=== PATIENT | female | born 1975 | race Caucasian/White ===

== ENCOUNTER → 2017-08-11 | Day surgery (SDC) | payer OTHER ==
[2017-08-08 14:25] LABS: BASOPHILS % 0.5 % (0.0-1.0); EOSINOPHILS # (AUTO) 0.2 (0.0-0.4); HEMATOCRIT 35.7 % (34.2-44.1); HEMOGLOBIN 11.1 g/dL (12.0-16.0); LYMPHOCYTES # (AUTO) 2.5 (1.0-3.2); LYMPHOCYTES % 33.6 % (18.0-39.1); MEAN CORPUSCULAR HEMOGLOBIN 23.5 pg (28-32); MEAN CORPUSCULAR HGB CONC 31.1 g/dL (31-35); MEAN CORPUSCULAR VOLUME 75.6 fL (81-99); MONOCYTES # (AUTO) 0.3 (0.2-0.8); MONOCYTES % 3.8 % (4.4-11.3); NEUTROPHILS # (AUTO) 4.4 (2.1-6.9); NEUTROPHILS % 58.8 % (38.7-80.0); PLATELET COUNT 273 x10e3/uL (140-360); RED BLOOD COUNT 4.72 x10e6/uL (3.6-5.1)
[2017-08-08 14:44] LABS: ANION GAP 13.7 mmol/L (8-16); BLOOD UREA NITROGEN 8 mg/dL (7-26); BUN/CREATININE RATIO 10 (6-25); CALCIUM 9.3 mg/dL (8.4-10.2); CARBON DIOXIDE 23 mmol/L (22-29); CHLORIDE 105 mmol/L (98-107); CREATININE, SERUM 0.84 mg/dL (0.57-1.11); EST GLOMERULAR FILTRATION RATE > 60 ML/MIN (60-); GLUCOSE 108 mg/dL (74-118); POTASSIUM 3.7 mmol/L (3.5-5.1); SODIUM 138 mmol/L (136-145)
[~2017-08-11] MED LIST: ACETAMINOPHEN325 M1 PO; BUPIVACAINE 0.25%/EPI 30ML SDV INJ ONE; DEXAMETHASONE SOD PHOS INJ 4 MG/ML VIAL ONE; FAMOTIDINE 20 MG/2 ML VIAL IV ONE; FENTANYL CITRATE/PF 100MCG/2 ML INJ ONE; GLYCOPYRROLATE INJ 1MG/ 5 ML SYR ONE; KETOROLAC TROMETHAMINE 30 MG/ML VIAL ONE; LIDOCAINE HCL 2% LOCAL INJ 5 ML SDV VIAL INJ ONE; METOCLOPRAMIDE HCL 10 MG/2ML VIAL ONE; MIDAZOLAM HCL 2 MG/2 ML VIAL ONE; MOTRIN200 MG PO; NEOSTIGMINE 5 MG/5ML SYR ONE; ONDANSETRON HCL INJ 2 MG/ML VIAL ONE; PRILOSEC10 M1; PROPOFOL IV EMULSION 10 MG/ML 20 ML VIAL ONE; ROCURONIUM BROMIDE 10 MG/ML 5ML VIAL ONE; SCOPOLAMINE 1.5 MG PATCH ONE; SEVOFLURANE INHAL SOLN 250 ML PEN BTL ONE; TRAMADOL HCL100 MG
--- OUTSIDE RECORDS SUMMARY | 2017-08-11 07:47 | XMS REPORT | Summary of Care ---
Author Author [facility] Organization [facility] Address Unknown Phone Unavailable Encounter HQ Estephania_edwige(FIN) [id number] Date(s): 06/23/17 - 06/23/17 [place] [id number] [facility], [address] [place] [address]- [phone] Discharge Disposition: Home or Self Care Attending Physician: Kala Flores MD Vital Signs Most recent to 1 oldest [Reference Range]: Height 160.02 cm (06/23/17 9:49 AM) Temperature Oral 98.2 DegF [96.4-99.1 DegF] (06/23/17 9:49 AM) Blood Pressure 126/84 mmHg [90-140/60-90 mmHg] (06/23/17 9:49 AM) Peripheral Pulse 101 bpm Rate [60-100 bpm] *HI* (06/23/17 9:49 AM) Weight 90.483 kg (06/23/17 9:49 AM) Body Mass Index 35.34 m2 (06/23/17 9:49 AM) Problem List Condition Effective Dates Status Health Status Informant Acute upper 10/24/13 Active respiratory infection of multiple sites1 Anemia(Confirmed) Active Celiac Resolved disease(Confirmed) Obesity(Confirmed) Active Otitis Resolved media(Confirmed) Weight Active gain(Confirmed) 1Data migrated from [employer] on 08/12/14. Allergies, Adverse Reactions, Alerts Substance Reaction Severity Status sulfa drugs1 Active wheat dextrin Active 1Data migrated from [employer] on 10/09/14. Originally documented as SULFA. Medications No Known Medications Results No data available for this section Immunizations Given and Recorded Vaccine Date Status Refusal Reason diphtheria/pertussis, acel/tetanus adult1 08/13/15 Given 1Result Comment: [facility]#[id number] Procedures Procedure Date Related Diagnosis Body Site Status section Completed D&C - Dilatation and curettage Completed Esophagoduodenostomy Completed Miscellaneous operations1 Completed 1Ear surgery Social History Social History Type Response Alcohol Never Smoking Status Never smoker; Previous treatment: None; Exposure to Tobacco Smoke None; Cigarette Smoking Last 365 Days No; Reg Smoking Cessation Counseling No entered on: 06/23/17 Assessment and Plan No data available for this section
--- OUTSIDE RECORDS SUMMARY | 2017-08-11 07:47 | XMS REPORT | Summary of Care ---
Author Author [facility] Organization [facility] Address Unknown Phone Unavailable Encounter LEN Hardy(JANNETH) [id number] Date(s): 02/16/16 - 02/16/16 [facility] [address] [place] [address]- Discharge Diagnosis: Abdominal pain Discharge Diagnosis: Acute pyelonephritis Discharge Disposition: Home or Self Care Attending Physician: René Paulino MD Vital Signs 1 2 3 Most recent to oldest [Reference Range]: 160.02 cm (02/16/16 11:28 AM) Height 98.1 DegF (02/16/16 8:30 PM) 98.2 DegF (02/16/16 2:22 PM) 98.7 DegF (02/16/16 11:28 AM) Temperature Oral [96.4-99.1 DegF] 110/72 mmHg (02/16/16 8:30 PM) 108/67 mmHg (02/16/16 2:22 PM) 107/70 mmHg (02/16/16 11:28 AM) Blood Pressure [90-140/60-90 mmHg] 16 BRMIN (02/16/16 8:30 PM) 18 BRMIN (02/16/16 2:22 PM) 18 BRMIN (02/16/16 11:28 AM) Respiratory Rate [14-20 BRMIN] 86 bpm (02/16/16 8:30 PM) 87 bpm (02/16/16 2:22 PM) 91 bpm (02/16/16 11:28 AM) Peripheral Pulse Rate [60-100 bpm] 77.273 kg (02/16/16 11:28 AM) Weight 30.18 m2 (02/16/16 11:28 AM) Body Mass Index Problem List Condition Effective Dates Status Health Status Informant Acute upper 10/24/13 Active respiratory infection of multiple sites1 Anemia(Confirmed) Active Celiac Resolved disease(Confirmed) Obesity(Confirmed) Active Otitis Resolved media(Confirmed) Weight Active gain(Confirmed) 1Data migrated from [employer] on 08/12/14. Allergies, Adverse Reactions, Alerts Substance Reaction Severity Status sulfa drugs1 Active 1Data migrated from [employer] on 10/09/14. Originally documented as SULFA. Medications ciprofloxacin 500 mg oral tablet 500 mg=1 tab, PO, Q12H, X 10 day, # 20 tab, 0 Refill(s), Pharmacy: [place] [id number] Start Date: 02/16/16 Stop Date: 02/26/16 Status: Ordered Rocephin + sodium chloride 0.9% INJ 100 mL 1 gm, Route: IVPB, ONCE, Dosing Weight 77.273, kg, Priority: STAT, Start date: 02/16/16 18:45:00 RESEARCH DEVELOPMENT DIRECTOR, Stop date: 02/16/16 18:45:00 RESEARCH DEVELOPMENT DIRECTOR Notes: (Same As: Rocephin).Use with 100 mL NS and infuse over 30 min MEDICATION WASTE Product Size: 1000 mgProduct Wasted: ___ mg Start Date: 02/16/16 Stop Date: 02/16/16 Status: Completed tramadol 50 mg oral tablet 50 mg=1 tab, PO, Q6H, PRN Pain, X 10 day, # 24 tab, 0 Refill(s) Start Date: 02/16/16 Stop Date: 02/26/16 Status: Ordered Results ELECTROLYTES Most recent to 1 oldest [Reference Range]: Sodium Lvl [135-145 139 mEq/L mEq/L] (02/16/16 2:16 PM) Potassium Lvl 4.2 mEq/L [3.5-5.1 mEq/L] (02/16/16 2:16 PM) Chloride Lvl [95-109 105 mEq/L mEq/L] (02/16/16 2:16 PM) CO2 [24-32 mEq/L] 27 mEq/L (02/16/16 2:16 PM) AGAP [10.0-20.0 11.2 mEq/L mEq/L] (02/16/16 2:16 PM) CHEM PANEL Most recent to 1 oldest [Reference Range]: Creatinine Lvl 0.99 mg/dL [0.50-1.40 mg/dL] (02/16/16 2:16 PM) eGFR 73 mL/min/1.73m2 1 *NA* (02/16/16 2:16 PM) BUN [7-22 mg/dL] 7 mg/dL (02/16/16 2:16 PM) B/C Ratio [6-25] 7 (02/16/16 2:16 PM) Glucose Lvl [70-99 86 mg/dL mg/dL] (02/16/16 2:16 PM) Total Protein 8.6 g/dL [6.4-8.4 g/dL] *HI* (02/16/16 2:16 PM) Albumin Lvl [3.5-5.0 3.5 g/dL g/dL] (02/16/16 2:16 PM) Globulin [2.7-4.2 5.1 g/dL g/dL] *HI* (02/16/16 2:16 PM) A/G Ratio [0.7-1.6] 0.7 (02/16/16 2:16 PM) Calcium Lvl 8.9 mg/dL [8.5-10.5 mg/dL] (02/16/16 2:16 PM) ALT [0-65 unit/L] 24 unit/L (02/16/16 2:16 PM) AST [0-37 unit/L] 14 unit/L (02/16/16 2:16 PM) Alk Phos [39-136 48 unit/L unit/L] (02/16/16 2:16 PM) Bili Total [0.2-1.3 0.6 mg/dL mg/dL] (02/16/16 2:16 PM) Lipase Lvl [73-393 168 unit/L unit/L] (02/16/16 2:16 PM) 1Result Comment: The eGFR is calculated using the CKD-EPI formula. In most young , healthy individuals the eGFR will be >90 mL/min/1.73m2. The eGFR declines with age. An eGFR of 60-89 may be normal in some populations, particularly the elderly, for whom the CKD-EPI formula has not been extensively validated. Use of the eGFR is not recommended in the following populations: Individuals with unstable creatinine concentrations, including patients and those with serious co-morbid conditions. Patients with extremes in muscle mass or diet. The data above are obtained from the National Kidney Disease Education Program ( NKDEP) which additionally recommends that when the eGFR is used in patients with extremes of body mass index for purposes of drug dosing, the eGFR should be multiplied by the estimated BMI. URINE CHEM Most recent to 1 oldest [Reference Range]: U Preg [Negative] Negative (02/16/16 4:22 PM) URINE AND STOOL Most recent to 1 oldest [Reference Range]: UA Turbidity [Clear] Marked *ABN* (02/16/16 4:22 PM) UA Color [Yellow] Yellow *NA* (02/16/16 4:22 PM) UA pH [5.0-8.0] 5.0 (02/16/16 4:22 PM) UA Spec Grav 1.024 [<=1.030] (02/16/16 4:22 PM) UA Glucose [Negative Negative mg/dL mg/dL] *NA* (02/16/16 4:22 PM) UA Blood [Negative] Small *ABN* (02/16/16 4:22 PM) UA Ketones [Negative Negative mg/dL mg/dL] *NA* (02/16/16 4:22 PM) UA Protein [Negative 100 mg/dL mg/dL] *ABN* (02/16/16 4:22 PM) UA Urobilinogen <=1.0 mg/dL [0.1-1.0 mg/dL] *NA* (02/16/16 4:22 PM) UA Bili [Negative] Negative *NA* (02/16/16 4:22 PM) UA Leuk Est Large [Negative] *ABN* (02/16/16 4:22 PM) UA Nitrite Negative [Negative] (02/16/16 4:22 PM) UA WBC [0-5 /HPF] >182 /HPF *HI* (02/16/16 4:22 PM) UA RBC [0-2 /HPF] 9 /HPF *HI* (02/16/16 4:22 PM) UA Bacteria [None Many /HPF Seen /HPF] *ABN* (02/16/16 4:22 PM) UA Sq Epi [Few /LPF] Many /LPF *ABN* (02/16/16 4:22 PM) UA Hyal Cast [0-2 3 /LPF /LPF] *HI* (02/16/16 4:22 PM) UA Amorph Victoria [None Occasional /HPF Seen /HPF] *NA* (02/16/16 4:22 PM) UA Mucus [None Seen Moderate /LPF /LPF] *ABN* (02/16/16 4:22 PM) HEMATOLOGY Most recent to 1 oldest [Reference Range]: WBC [3.7-10.4 K/CMM] 9.5 K/CMM (02/16/16 2:16 PM) RBC [4.20-5.40 4.81 M/CMM M/CMM] (02/16/16 2:16 PM) Hgb [12.0-16.0 g/dL] 13.1 g/dL (02/16/16 2:16 PM) Hct [36.0-48.0 %] 40.0 % (02/16/16 2:16 PM) MCV [80.0-98.0 fL] 83.3 fL (02/16/16 2:16 PM) MCH [27.0-31.0 pg] 27.2 pg (02/16/16 2:16 PM) MCHC [32.0-36.0 32.7 g/dL g/dL] (02/16/16 2:16 PM) RDW [11.5-14.5 %] 14.5 % (02/16/16 2:16 PM) Platelet [133-450 254 K/CMM K/CMM] (02/16/16 2:16 PM) MPV [7.4-10.4 fL] 8.2 fL (02/16/16 2:16 PM) Segs [45.0-75.0 %] 66.3 % (02/16/16 2:16 PM) Lymphocytes 25.8 % [20.0-40.0 %] (02/16/16 2:16 PM) Monocytes [2.0-12.0 6.0 % %] (02/16/16 2:16 PM) Eosinophils [0.0-4.0 1.4 % %] (02/16/16 2:16 PM) Basophils [0.0-1.0 0.5 % %] (02/16/16 2:16 PM) Segs-Bands # 6.3 K/CMM [1.5-8.1 K/CMM] (02/16/16 2:16 PM) Lymphocytes # 2.4 K/CMM [1.0-5.5 K/CMM] (02/16/16 2:16 PM) Monocytes # [0.0-0.8 0.6 K/CMM K/CMM] (02/16/16 2:16 PM) Eosinophils # 0.1 K/CMM [0.0-0.5 K/CMM] (02/16/16 2:16 PM) Immunizations Given and Recorded Vaccine Date Status Refusal Reason diphtheria/pertussis, acel/tetanus adult1 08/13/15 Given 1Result Comment: [facility]#[id number] Procedures Procedure Date Related Diagnosis Body Site section D&C - Dilatation and curettage Esophagoduodenostomy Miscellaneous operations1 1Ear surgery Social History Social History Type Response Alcohol Never Smoking Status Never smoker; Previous treatment: None; Exposure to Tobacco Smoke None; Cigarette Smoking Last 365 Days No; Reg Smoking Cessation Counseling No Assessment and Plan No data available for this section
--- OUTSIDE RECORDS SUMMARY | 2017-08-11 07:47 | XMS REPORT | Summary of Care ---
Author Author [facility] Organization [facility] Address Unknown Phone Unavailable Encounter LEN Hardy(JANNETH) [id number] Date(s): 03/13/17 - 03/13/17 [facility] [address] [address] [place] [phone] Discharge Disposition: Home or Self Care Attending Physician: Thiago Alvarado MD Vital Signs Most recent to 1 oldest [Reference Range]: Height 160.02 cm (03/13/17 2:45 PM) Temperature Oral 97.2 DegF [96.4-99.1 DegF] (03/13/17 2:45 PM) Blood Pressure 115/58 mmHg [90-140/60-90 mmHg] (03/13/17 2:45 PM) Respiratory Rate 18 BRMIN [14-20 BRMIN] (03/13/17 2:45 PM) Peripheral Pulse 85 bpm Rate [60-100 bpm] (03/13/17 2:45 PM) Weight 90.455 kg (03/13/17 2:45 PM) Body Mass Index 35.33 m2 (03/13/17 2:45 PM) Problem List Condition Effective Dates Status Health Status Informant Acute upper 10/24/13 Active respiratory infection of multiple sites1 Anemia(Confirmed) Active Celiac Resolved disease(Confirmed) Obesity(Confirmed) Active Otitis Resolved media(Confirmed) Weight Active gain(Confirmed) 1Data migrated from [employer] on 08/12/14. Allergies, Adverse Reactions, Alerts Substance Reaction Severity Status sulfa drugs1 Active wheat dextrin Active 1Data migrated from [employer] on 10/09/14. Originally documented as SULFA. Medications tramadol 50 mg oral tablet 50 mg=1 tab, PO, BID, X 7 day, # 14 tab, 0 Refill(s) Start Date: 03/13/17 Stop Date: 03/20/17 Status: Ordered Results No data available for this section Immunizations Given and Recorded Vaccine Date Status Refusal Reason diphtheria/pertussis, acel/tetanus adult1 08/13/15 Given 1Result Comment: [facility]#[id number] Procedures Procedure Date Related Diagnosis Body Site section D&C - Dilatation and curettage Esophagoduodenostomy Miscellaneous operations1 1Ear surgery Social History Social History Type Response Alcohol Never Smoking Status Never smoker; Ready to change: No; Concerns about tobacco use in household: No; Exposure to Tobacco Smoke None; Cigarette Smoking Last 365 Days No; Reg Smoking Cessation Counseling No Assessment and Plan No data available for this section
--- OUTSIDE RECORDS SUMMARY | 2017-08-11 07:47 | XMS REPORT | Summary of Care ---
Author Author [facility] [place] Address Unknown Phone Unavailable Encounter HQ Estephania_edwige(FIN) [id number] Date(s): 10/05/16 - 10/05/16 [facility] [place] [address] [facility] [address] [place] [address]- [phone] Discharge Disposition: Home or Self Care Attending Physician: Frank Smith MD Vital Signs No data available for this section Problem List Condition Effective Dates Status Health Status Informant Acute upper 10/24/13 Active respiratory infection of multiple sites1 Anemia(Confirmed) Active Celiac Resolved disease(Confirmed) Obesity(Confirmed) Active Otitis Resolved media(Confirmed) Weight Active gain(Confirmed) 1Data migrated from [employer] on 08/12/14. Allergies, Adverse Reactions, Alerts Substance Reaction Severity Status sulfa drugs1 Active wheat dextrin Active 1Data migrated from [employer] on 10/09/14. Originally documented as SULFA. Medications No data available for this section Results No data available for this section Immunizations Given and Recorded Vaccine Date Status Refusal Reason diphtheria/pertussis, acel/tetanus adult1 08/13/15 Given 1Result Comment: [facility]#[id number] Procedures Procedure Date Related Diagnosis Body Site [...]
--- OUTSIDE RECORDS SUMMARY | 2017-08-11 07:47 | XMS REPORT | Summary of Care ---
Author Author RAYA Rodriguez, MAEVE Organization Unknown Address Unknown Phone Unavailable Care Team Providers Care Physician Pediatrician Name Role Phone MAEVE DOS SANTOS M.D. Unavailable Unavailable Unavailable Unavailable Functional Status Name Dates Details Functional status health issues are not documented Status: Name Dates Details Cognitive status health issues are not documented Status: Problems Name Dates Details Chest pain (786.50, R07.9) Status: Active Palpitations (785.1, R00.2) Status: Active Shortness of breath (786.05, R06.02) Status: Active Medications Name Dates Details Pantoprazole Sodium 20 MG Oral Tablet Delayed Release TAKE 1 TABLET DAILY. * Start : 20-Jul-2017 Active Allergies and Adverse Reactions Name Dates Details Sulfa Drugs (Allergy) Status: Active wheat dextrin (Allergy) Status: Active Past Medical History Name Dates Details History of celiac disease (V12.79, Z87.19) Status: Resolved Procedures Procedure Dates Details Echo (In Office) Date: 20-Jul-2017 [N] Plain Treadmill-Non Imaging Stress Test-Standard João Date: 20-Jul-2017 History of Dilation and curettage Completed History of section Completed History of Ear surgery Completed History of Tubal ligation Completed Immunization Name Dates Details Immunizations not documented Family History Name Dates Details Family history of cardiac disorder (V17.49, Z82.49) Status: Active Family history of diabetes mellitus (V18.0, Z83.3) Status: Active Name Dates Details Family history of diabetes mellitus (V18.0, Z83.3) Status: Active Social History Name Dates Details Unknown if ever smoked Vital Signs Date Test Result Details [id number]-Izo-[id number]:53 BP Systolic 124 mm[Hg] Status: BP Diastolic 80 mm[Hg] Status: Height 63 in Status: Weight 191 lb Status: Body Mass Index Calculated 33.83 kg/m2 Status: Body Surface Area Calculated 1.9 m2 Status: Heart Rate 79 /min Status: Results Date Description Value Details Results not documented Plan of Care Name Dates Details Planned Observations [N] Plain Treadmill-Non Imaging Stress Test-Standard João On: 20-Jul-2017 Intent Planned Goals not documented Planned Encounters Appointment; SE, ECHO On: 26-Jul-2017 13:45 Appointment; MAEVE DOS SANTOS M.D. On: 14-Aug-2017 11:00 Interventions Provided Labs/Procedures/Imaging* Echo (In Office); To Be Done: 20 Jul 2017 Instructions* Patient Specific Education Given; Done: 20 Jul 2017 Plan* 1. Chest pain * - atypical and partially reproducible * - no active ST T changes * - will have TMT (not sure if can exercise, normal EKG) and Echo (WM,. and EF) * 2. Follow up w/ results Discussion/Summary* Clinical cardiac findings reviewed and discussed * EKG reviewed and discussed Instructions Name Dates Details Instructions not documented Encounters Appointment; MAEVE DOS SANTOS M.D. Encounter Diagnosis: Problem not documented On: 20-Jul-2017 8:30
--- OUTSIDE RECORDS SUMMARY | 2017-08-11 07:47 | XMS REPORT | Summary of Care ---
Author Author [facility] Organization [facility] Address Unknown Phone Unavailable Encounter LEN Hardy(FIN) [id number] Date(s): 07/14/17 - 07/14/17 [facility] [address] [place], [place] [address] [phone] Discharge Disposition: Home or Self Care Attending Physician: Alessia Laguerre MD Vital Signs Most recent to 1 oldest [Reference Range]: Height 160.02 cm (07/14/17 7:15 PM) Blood Pressure 117/70 mmHg [90-140/60-90 mmHg] (07/14/17 7:15 PM) Respiratory Rate 18 BRMIN [14-20 BRMIN] (07/14/17 7:15 PM) Peripheral Pulse 101 bpm Rate [60-100 bpm] *HI* (07/14/17 7:15 PM) Weight 88.182 kg (07/14/17 7:15 PM) Body Mass Index 34.44 m2 (07/14/17 7:15 PM) Problem List Condition Effective Dates Status Health Status Informant Acute upper 10/24/13 Resolved respiratory infection of multiple sites1 Anemia(Confirmed) Active Celiac Resolved disease(Confirmed) Obesity(Confirmed) Active Otitis Resolved media(Confirmed) Weight Active gain(Confirmed) 1Data migrated from [employer] on 08/12/14. Allergies, Adverse Reactions, Alerts Substance Reaction Severity Status sulfa drugs1 Active wheat dextrin Active 1Data migrated from [employer] on 10/09/14. Originally documented as SULFA. Medications ibuprofen 800 mg oral tablet 800 mg=1 tab, PO, TID, X 7 day, # 21 tab, 0 Refill(s) Start Date: 07/14/17 Stop Date: 07/21/17 Status: Ordered ketOROLAC 60 mg, Route: IM, Drug form: INJ, ONCE, Dosing Weight 88.182, kg, Start date: 19:40:00 CDT, Stop date: 07/14/17 19:40:00 CDT Start Date: 07/14/17 Stop Date: 07/14/17 Status: Completed pantoprazole 20 mg oral enteric coated tablet 20 mg=1 tab, PO, Daily, # 30 tab, 1 Refill(s) Start Date: 07/14/17 Status: Ordered Results No data available for this section Immunizations Given and Recorded Vaccine Date Status Refusal Reason diphtheria/pertussis, acel/tetanus adult1 08/13/15 Given 1Result Comment: [facility]#[id number] Procedures Procedure Date Related Diagnosis Body Site Status section Completed D&C - Dilatation and curettage Completed Esophagoduodenostomy Completed Miscellaneous operations1 Completed 1Ear surgery Social History Social History Type Response Alcohol Never Smoking Status Never smoker; Previous treatment: None; Ready to change: No; Concerns about tobacco use in household: No; Exposure to Tobacco Smoke None; Cigarette Smoking Last 365 Days No; Reg Smoking Cessation Counseling No entered on: 07/14/17 Assessment and Plan No data available for this section
--- NOTE | 2017-08-11 14:54 | Operative Report ---
DATE OF PROCEDURE: August 11, 2017 PREOPERATIVE DIAGNOSIS: Cholecystitis and cholelithiasis. POSTOPERATIVE DIAGNOSIS: Cholecystitis and cholelithiasis. OPERATION PERFORMED: Laparoscopic cholecystectomy. UNDERPRESSER HAND: Dr. Guilherme Santana and Tracy MACDONALD. ANESTHESIA: General. COMPLICATIONS: None. ESTIMATED BLOOD LOSS: Minimal. DESCRIPTION OF PROCEDURE: With the patient lying in bed in the supine position under good general endotracheal anesthesia, the abdomen was prepped with Betadine solution and draped in the usual manner. A Veress needle was introduced into the umbilicus, and pneumoperitoneum was established without any difficulty. An 11 mm trocar was placed into the umbilicus, and a 10 mm video laparoscope was placed into the intra-abdominal cavity. Under direct vision, three 5 mm trocars were placed in the right subcostal region. Video laparoscopy at this point revealed a gallbladder that contained multiple stones. Otherwise the rest of the abdominal exploration was within normal limits. The peritoneum overlying the neck of the gallbladder was then opened, and the cystic duct was identified. The cystic duct was followed to its junction with the common duct. Cystic duct was rather small in caliber. Cystic duct was then circumferentially dissected away from the common duct, doubly clipped and divided. The cystic artery was similarly doubly clipped and divided. The gallbladder was then slowly and carefully taken off of the liver bed using the cautery scissors, and perfect hemostasis was ascertained. The gallbladder was then grasped through the umbilical port and removed without any difficulty. Video laparoscopy was then again carried out. All of the excess fluid was aspirated. The pneumoperitoneum was evacuated, and all the trocars were removed under direct vision. The midline fascia at the umbilicus was then closed with a [id number] of 0 Vicryl. All layers were infiltrated on the way out with solution of 1/4 percent Marcaine. Subcutaneous tissue was approximated with 3-0 Vicryl, and the skin was closed with subcuticular 5-0 Vicryl. Benzoin, Steri-Strips and Band-Aids were applied. The sponge, lap and needle count was correct. The patient tolerated the procedure well and returned to the recovery room in stable condition. Job#: [id number] EV
== END | disposition home or self-care (01) ==
LOC: OR 07:43
PROVIDERS: ATTEND Surgery
DX: K80.10 Calculus of gallbladder with chronic cholecystitis without obstruction (principal); E66.9 Obesity, unspecified; K21.9 Gastro-esophageal reflux disease without esophagitis; K58.9 Irritable bowel syndrome, unspecified; D64.9 Anemia, unspecified; Z88.2 Allergy status to sulfonamides; Z91.018 Allergy to other foods; Z01.810 Encounter for preprocedural cardiovascular examination; Z01.812 Encounter for preprocedural laboratory examination
CPT/HCPCS: 36415; 47562; 80048; 81025; 85025; 88304; 93005; C1766; J1100; J1885; J2001; J2250; J2405; J2765; J3490